=== PATIENT | female | born 1990 | race Native Hawaiian/Other Pacific Islander ===

== ENCOUNTER 2017-03-26 23:57 | Emergency (ER) | payer SELFPAY ==
[2017-03-27 00:26] VITALS: BP 118/82; PULSE 80; TEMP 98; BMI 26.4
[2017-03-27] MEDS ORDERED: SODIUM CHLORIDE 0.9% 500 ML INFUS.BAG IV ONE (01:16)
[2017-03-27] MEDS ORDERED: morphine CARPU-JECT 2 MG/1 ML DISP.SYRIN IVPUSH ONE (01:16)
--- NOTE | 2017-03-27 01:22 | PDOC ---
History of Present Illness - General History Source: Patient Exam Limitations: No Limitations - History of Present Illness Initial Comments: 03/27/17 01:41 The patient is a 27 year old female with no significant PMH who presents to the emergency department with epigastric pain radiating to the right abdomen/trunk that worsened at 3PM yesterday. The patient states she had a similar epigastric pain approximately 1 month ago that resolved after drinking alessandra swathi. The patient notes that when the epigastric pain began at 3PM yesterday the pain did not resolve with alessandra swathi. The patient had nausea and two episodes of emesis since 3PM secondary to the epigastric pain. The patient states she took omeprazole with no alleviation of symptoms. The epigastric pain is not worsened by eating. The patient endorses she had mild dysuria earlier today. The patient does not get her menstrual period since she is currently on Depo-Provera. The patient states she had renal stones in the past. The patient denies any family history of renal stones. The patient denies any weakness of the legs. The patient denies chest pain, shortness of breath, headache and dizziness. Denies fever, chills, diarrhea and constipation. Denies flank pain, frequency, urgency and hematuria. Allergies: NKA Past surgical history: None reported. Social history: No reported alcohol, cigarette, or drug use. <Lizeth Ernst - Last Filed: 03/27/17 01:59> <Adelaida Young - Last Filed: 03/27/17 03:40> - General Chief Complaint: Pain Stated Complaint: STOMACH PAIN Time Seen by Provider: 03/27/17 01:12 Past History <Lizeth Ernst - Last Filed: 03/27/17 01:59> - Suicide/Smoking/Psychosocial Hx Smoking History: Never smoked Have you smoked in the past 12 months: No Information on smoking cessation initiated: No Hx Alcohol Use: No Drug/Substance Use Hx: No <Adelaida Young - Last Filed: 03/27/17 03:40> - Past Medical History Allergies/Adverse Reactions: Allergies Allergy/AdvReac Type Severity Reaction Status Date / Time No Known Allergies Allergy Verified 03/27/17 00:23 Home Medications: Ambulatory Orders Unobtainable [Unobtainable] 03/27/17 Review of Systems - Review of Systems Able to Perform ROS?: Yes Comments:: 03/27/17 01:49 GENERAL/CONSTITUTIONAL: No fever or chills. No weakness. HEAD, EYES, EARS, NOSE AND THROAT: No change in vision. No ear pain or discharge. No sore throat. CARDIOVASCULAR: No chest pain or shortness of breath. RESPIRATORY: No cough, wheezing, or hemoptysis. GASTROINTESTINAL: (+) Epigastric pain. (+) nausea. (+) vomiting. No diarrhea or constipation. GENITOURINARY: (+) Dysuria. No frequency, or change in urination. MUSCULOSKELETAL: No joint or muscle swelling or pain. No neck or back pain. SKIN: No rash NEUROLOGIC: No headache, vertigo, loss of consciousness, or change in strength/ sensation. ENDOCRINE: No increased thirst. No abnormal weight change. HEMATOLOGIC/LYMPHATIC: No anemia, easy bleeding, or history of blood clots. ALLERGIC/IMMUNOLOGIC: No hives or skin allergy. <Lizeth Ernst - Last Filed: 03/27/17 01:59> *Physical Exam - Vital Signs Last Vital Signs Temp Pulse Resp BP Pulse Ox 98.0 F 80 16 118/82 100 03/27/17 00:23 03/27/17 00:23 03/27/17 00:23 03/27/17 00:23 03/27/17 00:23 - Physical Exam Comments: 03/27/17 01:48 GENERAL: Awake, alert, and fully oriented, in no acute distress HEAD: No signs of trauma EYES: PERRLA, EOMI, sclera anicteric, conjunctiva clear ENT: Auricles normal inspection, hearing grossly normal, nares patent, oropharynx clear without exudates. Moist mucosa NECK: Normal ROM, supple, no lymphadenopathy, JVD, or masses LUNGS: Breath sounds equal, clear to auscultation bilaterally. No wheezes, and no crackles HEART: Regular rate and rhythm, normal S1 and S2, no murmurs, rubs or gallops ABDOMEN: (+) RUQ tenderness. Epigastric tenderness. Soft, normoactive bowel sounds. No guarding, no rebound. No masses EXTREMITIES: Normal range of motion, no edema. No clubbing or cyanosis. No cords, erythema, or tenderness NEUROLOGICAL: Cranial nerves II through XII grossly intact. Normal speech, normal gait SKIN: Warm, Dry, normal turgor, no rashes or lesions noted. <Sujata,Lizeth - Last Filed: 03/27/17 01:59> - Vital Signs Last Vital Signs Temp Pulse Resp BP Pulse Ox 98.0 F 80 16 118/82 100 03/27/17 00:23 03/27/17 00:23 03/27/17 00:23 03/27/17 00:23 03/27/17 00:23 <Adelaida Young - Last Filed: 03/27/17 03:40> ED Treatment Course - LABORATORY CBC & Chemistry Diagram: 03/27/17 01:30 03/27/17 01:30 <SujataLizeth - Last Filed: 03/27/17 01:59> - LABORATORY CBC & Chemistry Diagram: 03/27/17 01:30 03/27/17 01:30 <Adelaida Young - Last Filed: 03/27/17 03:40> Medical Decision Making - Medical Decision Making 03/27/17 01:22 Pt comes with vomiting x 2 and epigastric pain and pain radiating around to the right side of her abd/trunk. SHe has no fever or chills, and she is able to eat , but she takes omeprazole for pain. Pt has no fever or chills. 03/27/17 01:38 Pt has significant epigastric and RUQ pain. She is afebrile and she has no dysuria and no flank pain. Lbas were drawn and patient was hydrated. She was sent for a sono of her abdomen to r/o cholecystitis and pancreatitis. 03/27/17 02:04 Pt still at sono; WBC is elevated at 13.3 03/27/17 02:46 Patient Name: PEDRO CAMACHO THIS IS A PRELIMINARY REPORT FROM [facility] DATE OF SERVICE: 2017-03-27 01:40:55 IMAGES: 36 EXAM: US ABDOMEN LIMITED, right upper quadrant and limited abdominal duplex HISTORY: Rule out cholecystitis or pancreatitis COMPARISON: None. FINDINGS: Right upper quadrant ultrasound:The liver is normal, without mass or biliary duct dilation. The gallbladder is normal. The CBD is not dilated and measures2 millimeters in diameter. Right kidney measures 9.9centimeters in length and is unremarkable. The visualized aorta and IVC are normal. Pancreas is partially obscured, but appears normal. Abdominal duplex: The main portal vein demonstrates normal hepatopedal flow. IMPRESSION: Normal exam. 03/27/17 02:46 If UA is normal, pt can go home. <Adelaida Young - Last Filed: 03/27/17 03:40> *DC/Admit/Observation/Transfer - Attestations Scribe Attestion: 03/27/17 01:50 Documentation prepared by Lizeth Ernst, acting as medical genetics director for Adelaida Young MD. <Lizeth Ernst - Last Filed: 03/27/17 01:59> - Discharge Dispostion Admit: No <Adelaida Young - Last Filed: 03/27/17 03:40> Diagnosis at time of Disposition: Gas pain, Gastritis - Discharge Dispostion Disposition: HOME Condition at time of disposition: Stable - Patient Instructions Printed Discharge Instructions: DI for Dyspepsia
[2017-03-27] MEDS ORDERED: morphine CARPU-JECT 10 MG/1 ML DISP.SYRIN ONE (01:33)
[2017-03-27 01:34] LABS: BASO % 0.9 % (0-2.0); EOS % 2.7 % (0-4.5); HEMATOCRIT 42.4 % (32.4-45.2); HEMOGLOBIN 14.2 GM/dL (10.7-15.3); MCH 29.6 pg (25.7-33.7); MCHC 33.4 g/dl (32.0-36.0); MEAN CELL VOLUME 88.5 fl (80-96); MEAN PLT VOLUME 8.4 fl (7.5-11.1); MONO % 6.2 % (3.8-10.2); NEUT % 68.2 % (42.8-82.8); PLATELET COUNT 403 K/MM3 (134-434); RBC 4.79 M/mm3 (3.60-5.2); RDW 12.4 % (11.6-15.6); WHITE BLOOD COUNT 13.3 K/mm3 (4.0-10.0)
[2017-03-27 02:00] LABS: ALBUMIN 4.1 g/dl (3.4-5.0); AMYLASE 70 U/L (25-115); ANION GAP 13 (8-16); BILIRUBIN,TOTAL 0.2 mg/dL (0.2-1.0); BLOOD UREA NITROGEN 10 mg/dL (7-18); CALCIUM 9.3 mg/dL (8.5-10.1); CHLORIDE 105 mmol/L (98-107); CO2 23 mmol/L (21-32); CREATININE 0.7 mg/dL (0.55-1.02); GLUCOSE,RANDOM 106 mg/dL (74-106); LIPASE 182 U/L (73-393); POTASSIUM 3.5 mmol/L (3.5-5.1); SGOT/AST 19 U/L (15-37); SGPT/ALT 34 U/L (12-78); SODIUM 141 mmol/L (136-145); TOT PROT 7.8 g/dl (6.4-8.2)
[2017-03-27 02:01] LABS: ALK PHOS 123 U/L (45-117)
[2017-03-27 02:07] LABS: INR 1.03 (0.82-1.09); PROTHROMBIN TIME (PATIENT) 11.6 SEC (9.98-11.88)
[2017-03-27 08:43] LABS: URINE APPEARANCE CLOUDY; URINE BILIRUBIN NEGATIVE (NEGATIVE); URINE BLOOD 1+ (NEGATIVE); URINE COLOR YELLOW; URINE GLUCOSE (UA) NEGATIVE (NEGATIVE); URINE KETONE NEGATIVE (NEGATIVE); URINE NITRITE POSITIVE (NEGATIVE); URINE PROTEIN NEGATIVE (NEGATIVE); URINE UROBILINOGEN NEGATIVE mg/dL (0.2-1.0)
[2017-03-27 08:45] LABS: URINE LEUK ESTERASE 2+ (NEGATIVE)
[2017-03-27 08:48] LABS: EPI CELLS FEW /HPF (FEW); URINE BACTERIA MODERATE /hpf (NONE SEEN)
== END 2017-03-27 03:23 | disposition home or self-care (01) ==
LOC: JER 23:57
PROC: 3E033NZ Introduction of Analgesics, Hypnotics, Sedatives into Peripheral Vein, Percutaneous Approach (ICD-10-PCS; principal; 2017-03-26)
DX: K29.70 Gastritis, unspecified, without bleeding (principal); R14.1 Gas pain
CPT/HCPCS: 36415; 76705-TC; 80053; 81003; 81015; 82150; 83690; 84703; 85025; 85610; 99281-25